=== PATIENT | male | born 1990 | race Caucasian/White ===

== ENCOUNTER 2025-03-28 12:51 | Emergency (ER) | payer OTHER, SELFPAY ==
[2025-03-28 13:06] VITALS: BP 160/100
[2025-03-28 13:33] LABS: Hematocrit 44.0 % (39.0-52.0); Hemoglobin 14.7 g/dL (13.0-18.0); Mean Corp Hgb Conc. 33.4 g/dL (33.0-37.0); Mean Corpuscular Volume 90.5 fL (80.0-94.0); Nucleated Red Blood Cells % 0 % (-); Platelet Count 292 10^3/uL (130-400); Red Cell Dist. Width 12.3 % (11.5-14.5)
[2025-03-28 13:37] LABS: Urine Character Clear (Clear)
[2025-03-28 13:45] LABS: Urine Squamous Cell 0-2 /LPF (Few); Urine White Cell 0-2 /HPF (0-5)
[2025-03-28 14:28] LABS: ALT (SGPT) 20 U/L (0-50); AST (SGOT) 21 U/L (17-59); Albumin 5.3 g/dl (3.5-5.0); Alkaline Phosphatase 86 U/L (38-126); Blood Urea Nitrogen 9 mg/dl (9-20); Calcium 9.8 mg/dl (8.4-10.2); Carbon Dioxide 23 mmol/L (22-30); Chloride 103 mmol/L (98-107); Glucose 102 mg/dl (70-99); Potassium 4.2 mmol/L (3.5-5.1); Sodium 138 mmol/L (135-145); Total Protein 8.3 g/dl (6.3-8.2); eGFR > 60.00
[2025-03-28 16:07] VITALS: BMI 22.0
[2025-03-28 16:15] VITALS: BP 135/94
[2025-03-28 17:00] VITALS: BP 115/83
[2025-03-28 18:00] VITALS: BP 124/71
[2025-03-28 19:03] VITALS: BP 124/91
--- NOTE | 2025-03-28 19:43 | ED.GENMED ---
History of Present Illness
General
Chief Complaint: Urinary Symptoms
Source: patient
Exam Limitations: none
Time Seen by Provider: 03/28/25 15:55
Nursing documentation reviewed up to this point in time: agreed with
History of Present Illness
History of Present Illness:
The patient is a 34-year-old healthy male who presents to the emergency department with one week of urinary symptoms now with abdominal pain. Patient reports approximately 1� 1.5 weeks of intermittent urinary hesitancy and dysuria. He also noticed
some discomfort in his lower back, which has been coming and going. Over the past few days, he developed a pain in the right side of his abdomen, spanning from his right flank into the right groin. He describes a tingling sensation is suprapubic
region.
He denies any nausea or vomiting, although does report anorexia over the past few days with very little appetite. He denies any obvious hemturia.
He denies any scrotal pain or swelling. He denies any fevers, chills, diarrhea, or constipation.
Patient states he was recently tested for STDs a few months ago which was negative.
Patient has no history of kidney stones or UTIs. No past history of STI/STDs.
Review of Systems
Review of Systems
Allergies reviewed?: Yes
All Other Systems: ROS reviewed and negative except as documented in HPI and ROS
Phy Exam
Physical Exam
Physical Exam:
Vitals: Hypertensive, otherwise vital signs are stable. Afebrile.
General: Patient is veru well appearing, no acute distress. Nontoxic appearing.
Skin: Warm and dry, no rashes or lesions
Head: Normocephalic, atraumatic
Eyes: Sclera nonicteric.
Throat: Protecting airway
Neck: Normal ROM, no cervical spine tenderness, no meningismus
Cardiac: Regular rate and rhythm, no murmurs.
Pulm: Normal respiratory effort, no wheezes, rales, rhonchi heard on exam
Abdomen: Abdomen soft. Mild tenderness in RLQ without rebound tenderness or guarding. No CVA tenderness.
: No palpable lymphadenopathy. No penile lesions or discharge. No scrotal edema or tenderness.
Extremities: No evidence of cyanosis or edema
Neuro: AAOx3. Grossly intact.
Psychiatric: Normal affect.
Course
Orders/Labs/Results
Orders:
Orders
03/28/25 13:16
Complete Blood Count/With Diff Urgent
Comprehensive Metabolic Panel Urgent
Urinalysis Reflex To Culture Urgent
Date Specimen was Collected: 03/28/25
Time Specimen was Collected: 13:10
Urine Microscopic Reflex Cult Urgent
Chlamydia/GC by PCR Urgent
JUSTINA Source: U
Specimen Description:
Date Specimen was Collected: 03/28/25
Time Specimen was Collected: 13:10
Comment: ADD ON
Urine Culture Urgent
JUSTINA Source: U
Specimen Description:
Date Specimen was Collected: 03/28/25
Time Specimen was Collected: 13:10
Comment: ADD ON
03/28/25 16:09
Add On - Microbiology Urgent
Tests Added?: urine GC/chlamydia
CT Abd/pelvis W Iv Cont Urgent
Comment:
Reason For Exam: Right flank pain, anorexia, dysuria
03/28/25 19:31
Add On - Microbiology Urgent
Tests Added?: urine culture
Abnormal Lab Results
03/28/25
13:16
WBC 11.6 H 10^3/uL
(4.8-10.8)
Absolute Neuts (auto) 9.5 H 10^3/uL
(1.4-6.5)
Neutrophils % 81.8 H %
(42.2-75.2)
Lymphocytes % 13.3 L %
(20.5-51.1)
Glucose 102 H mg/dl
(70-99)
Total Protein 8.3 H g/dl
(6.3-8.2)
Albumin 5.3 H g/dl
(3.5-5.0)
Urine Ketones 3+ A
(Negative)
Ur Occult Blood Reflex 2+ A
(Negative)
Urine RBC 3-6 A /HPF
(0-2)
03/28/25 13:16
03/28/25 13:16
Vital Signs
Initial and Last Documented VS:
Initial Vital Signs
Temp Pulse Resp BP Pulse Ox
99.1 F 109 16 160/100 98
03/28/25 13:06 03/28/25 13:06 03/28/25 13:06 03/28/25 13:06 03/28/25 13:06
Last Documented Vital Signs
Temp Pulse Resp BP Pulse Ox
99.1 F 109 16 124/91 96
03/28/25 13:06 03/28/25 13:06 03/28/25 13:06 03/28/25 19:03 03/28/25 19:43
MDM/Problems Addressed
Differential Diagnosis Includes:
Not limited to: muscle strain, constipation, appendicitis, renal colic, cystitis, GC/Chlamydia, etc
MDM/Problems Addressed:
34-year-old male with 1-1.5 weeks of intermittent dysuria and low back discomfort now with right-sided abdominal pain. No fevers or vomiting. Vitals and exam as above. Patient well-appearing, in no apparent distress. Abdomen soft mild tenderness
in right lower quadrant. No rebound tenderness or guarding. No CVA tenderness. No obvious abnormalities. Differential broad. Possible cystitis versus renal colic. Given location abdominal tenderness/appendicitis would be on differential as
well as pyelonephritis. ED plan: Labs, UA, CT scan abdomen/pelvis with IV contrast. Patient declines any analgesia
Update: Labs reviewed. Very mild leukocytosis of 11.6. Chemistry unremarkable. UA with few RBCs, however no evidence of infection. GC/chlamydia negative. CT scan without any acute findings.
Workup in ED negative. While UA not consistent with infection�given duration of symptoms�will send urine culture. Patient well-appearing and feel stable for discharge home with primary care follow-up. Advised repeat UA to ensure no persistent
RBCs. Did provide contact information for urology if needed for follow-up. Strict return precautions discussed. Patient and patient's family comfortable with plan.
Chronic conditions affecting care:
N/A
Acute Exacerbation and/or Progression of Chronic Illness:
N/A
*Radiology
Radiology exam reviewed: radiology read reviewed
*Pulse Oximetry
SaO2: 96
Oxygen Mode of Delivery: Room air
Patient hypoxic: no
*EKG
Interpreted by ED Provider?: NA
*Wheel Adjuster Interpretation
Rate: Wheel Adjuster- N/A
*Critical Care Note
Total Time (30-74mins, 75-104mins- exclusive of procedures): Not Applicable
ED Attending Note
-
Portions of this chart may have been created with voice recognition software.� Occasional wrong word or��sound alike� substitutions may have occurred due to the inherent limitations of voice recognition software.
Discharge Plan
Departure
Patient Disposition: Home (Routine Discharge)
Date of Disposition: 03/28/25
Time of Disposition: 19:32
Patient with high blood pressure during this ER visit?: Yes
Discharge Problem:
Abdominal pain
Instructions: Abdominal pain in adults - Discharge instructions, BLOOD PRESSURE
Referrals:
Shane Hercules MD [Active, Urology] - As needed
NONE,* [Family Provider, Internal Medicine]
Activity Restrictions/Additional Instructions:
RETURN TO THE EMERGENCY DEPARTMENT WITH ANY FEVER, PERSISTENT/WORSENING ABDOMINAL PAIN, INTRACTABLE NAUSEA/VOMITING, SEVERE BACK PAIN, DIFFICULTIES URINATING, WORSENING IN CURRENT SYMPTOMS, OR ANY OTHER CONCERNS
- As discussed�your white blood cell count was mildly elevated in the emergency department. Your urinalysis did show a few red blood cells in the urine. Please have a repeat urinalysis performed by your primary care to ensure this resolves.
Contact information for urologist been provided for you above if needed.
- You can take Tylenol and/or Motrin as needed for pain. It is important stay well-hydrated
- Follow-up with primary care for further evaluation/management and to ensure that your symptoms are improving
Monitor your symptoms closely and return to the emergency department with any acute worsening/new symptoms or any other concerns
Interventions
Interventions:
*Risk Screen - Suicide Last Done: 03/28/25 13:06
*General Assessment Last Done: 03/28/25 16:07
*Neglect/Abuse Screening Last Done: 03/28/25 13:06
*ED- Fall Risk Assessment Last Done: 03/28/25 16:07
*ED COVID-19 Vaccine History Last Done: 03/28/25 16:07
*Nursing Disposition Last Done: 03/28/25 19:47
ED-Male Genitourinary Assessment Last Done: 03/28/25 16:07
Discharge Date and Time
Discharge Date/Time: 03/28/25 19:52
Print Language: SAMI
== END 2025-03-28 19:52 | disposition home or self-care (01) ==
LOC: EMR 12:51
PROVIDERS: Emergency Medicine; EMERGENCY PHYSICIAN Emergency Medicine
DX: R10.9 Unspecified abdominal pain (principal); R30.0 Dysuria; R03.0 Elevated blood-pressure reading, without diagnosis of hypertension
CPT/HCPCS: 99285; 74177; 80053; 81003; 81015; 85025; 87086; 87491; 87591; Q9967